=== PATIENT | male | born 1985 | race Caucasian/White ===

== ENCOUNTER 2016-07-25 19:31 | Emergency (ER) | payer SELFPAY ==
--- NOTE | 2016-07-25 19:37 | EDPHY ---
H & P Time Seen by Provider: 07/25/16 19:31 HPI/ROS: CHIEF COMPLAINT: Dizzy and lightheaded HISTORY OF PRESENT ILLNESS: Patient worked all day in a greenhouse. Although he had chicken wings an omelet for breakfast he had a couple of L of coconut water. It was very hot and in fact although it has been in the 90s today outside he said it was hotter in the greenhouse. He had a couple of beers and a little bit of marijuana. Around 6:00 p.m. he started becoming dizzy and lightheaded. Not vertigo or spinning. Associated with difficulty keeping his balance and symptoms are moderate to severe. Arrives via EMS. REVIEW OF SYSTEMS: Eye: no change in vision ENT: no sore throat Cardiac: no chest pain or syncope Pulmonary: no cough or SOB Abdomen: no vomiting, diarrhea, abdominal pain Musculoskeletal: no back pain Skin: no rash Neuro: no headache Constitutional: no fever : no urinary symptoms A comprehensive 10 point review of systems is otherwise negative aside from elements mentioned in the history of present illness. PAST MEDICAL HISTORY: Negative Social history: Alcohol today, 2 beers General Appearance: Alert and conversant, cooperative. Eyes: No scleral icterus. ENT, Mouth: Dry mucous membranes Respiratory: Normal respiratory effort, breath sounds equal, lungs are clear to auscultation. Cardiovascular: Regular rate and rhythm. Gastrointestinal: Abdomen is soft and non tender. Neurological: Alert and oriented x3. Normally conversant. Face symmetric, normal movement and sensation in all extremities. Not ataxic. Skin: Warm and dry, no rashes. Musculoskeletal: No peripheral edema and no joint swelling. Psychiatric: Not agitated. Emergency Department course/MDM: Patient presents with likely dehydration and heat exhaustion. He did not actually have syncope. He clinically is dehydrated. Plan for i-STAT to check electrolytes. 2026: Ambulatory to the bathroom, still feels dizzy and dehydrated. 3rd L IV normal saline, labs and EKG pending. 2104: Feels better, continued improvement, plan for discharge after IV fluids finish. Constitutional: Initial Vital Signs Temperature (C) 36.9 C 07/25/16 19:42 Heart Rate 75 07/25/16 19:42 Respiratory Rate 14 07/25/16 19:42 Blood Pressure 127/75 H 07/25/16 19:42 O2 Sat (%) 96 07/25/16 19:42 O2 Delivery Mode Room Air Allergies/Adverse Reactions: No Known Allergies Allergy (Unverified 07/25/16 19:42) Home Medications: Medication Instructions Recorded NK [No Known Home Meds] 07/25/16 Medical Decision Making - Diagnostics EKG Interpretation: 12-lead EKG interpreted by me; official reading is in trace master. My interpretation is sinus rhythm rate 64 with normal intervals and inferior Q- waves noted probably normal variant. Differential Diagnosis: Differential for weakness and dizziness considered including but not limited to heat exhaustion, dehydration, dysrhythmia, metabolic abnormality. - Data Points Laboratory Results: Laboratory Results 07/25/16 19:38 07/25/16 19:38 07/25/16 07/25/16 07/25/16 19:38 19:38 19:30 WBC 8.28 10^3/uL 10^3/uL (3.80-9.50) RBC 5.10 10^6/uL 10^6/uL (4.40-6.38) Hgb 15.5 g/dL g/dL (13.7-17.5) POC Hgb 15.6 gm/dL gm/dL (13.7-17.5) Hct 44.3 % % (40.0-51.0) POC Hct 46 % % (40-51) MCV 86.9 fL fL (81.5-99.8) MCH 30.4 pg pg (27.9-34.1) MCHC 35.0 g/dL g/dL (32.4-36.7) RDW 13.1 % % (11.5-15.2) Plt Count 223 10^3/uL 10^3/uL (150-400) MPV 10.7 fL fL (8.7-11.7) Neut % (Auto) 60.5 % % (39.3-74.2) Lymph % (Auto) 27.2 % % (15.0-45.0) [place] % (Auto) 10.5 % % (4.5-13.0) Eos % (Auto) 0.8 % % (0.6-7.6) Baso % (Auto) 0.6 % % (0.3-1.7) Nucleat RBC Rel Count 0.0 % % (0.0-0.2) Absolute Neuts (auto) 5.01 10^3/uL 10^3/uL (1.70-6.50) Absolute Lymphs (auto) 2.25 10^3/uL 10^3/uL (1.00-3.00) Absolute Monos (auto) 0.87 10^3/uL H 10^3/uL (0.30-0.80) Absolute Eos (auto) 0.07 10^3/uL 10^3/uL (0.03-0.40) Absolute Basos (auto) 0.05 10^3/uL 10^3/uL (0.02-0.10) Absolute Nucleated RBC 0.00 10^3/uL 10^3/uL (0-0.01) Immature Gran % 0.4 % % (0.0-1.1) Immature Gran # 0.03 10^3/uL 10^3/uL (0.00-0.10) POC Sodium 141 mEq/L mEq/L (134-144) Sodium 137 mEq/L mEq/L (134-144) POC Potassium 3.0 mEq/L L mEq/L (3.3-5.0) Potassium 3.4 mEq/L L mEq/L (3.5-5.2) POC Chloride 102 mEq/L mEq/L (97-110) Chloride 103 mEq/L mEq/L (97-110) Carbon Dioxide 18 mEq/l L mEq/l (22-31) Anion Gap 16 mEq/L mEq/L (8-16) POC BUN 13 mg/dL mg/dL (7-23) BUN 13 mg/dL mg/dL (7-23) Creatinine 1.2 mg/dL mg/dL (0.7-1.3) POC Creatinine 1.3 mg/dL mg/dL (0.7-1.3) Estimated GFR > 60 Glucose 111 mg/dL H mg/dL (70-100) POC Glucose 116 mg/dL H mg/dL (70-100) Calcium 10.0 mg/dL mg/dL (8.5-10.4) Medications Given: Discontinued Medications Sodium Chloride (Ns) 1,000 mls @ 0 mls/hr IV ONCE ONE; Wide Open PRN Reason: Protocol Stop: 07/25/16 19:42 Last Admin: 07/25/16 19:42 Dose: 1,000 mls Sodium Chloride (Ns) 1,000 mls @ 0 mls/hr IV ONCE ONE; Wide Open PRN Reason: Protocol Stop: 07/25/16 19:42 Last Admin: 07/25/16 19:44 Dose: Not Given Sodium Chloride (Ns) 1,000 mls @ 0 mls/hr IV ONCE ONE; Wide Open PRN Reason: Protocol Stop: 07/25/16 20:29 Last Admin: 07/25/16 20:35 Dose: 1,000 mls Point of Care Test Results: 07/25/16 19:30 POC Sodium 141 POC Potassium 3.0 L POC Chloride 102 POC BUN 13 POC Creatinine 1.3 POC Glucose 116 H Departure - Departure Disposition: Home, Routine, Self-Care Clinical Impression: Dehydration Condition: Good Instructions: Dehydration (ED) Referrals: Patient,NotPresent [Unknown] - As per Instructions Nasreen Keller MD [Medical Doctor] - As per Instructions
[2016-07-25] MEDS ORDERED: NS 1,000 ML IV ONE ×3 (19:41→20:28)
[2016-07-25 19:44] VITALS: O2SAT 96
[2016-07-25 20:39] LABS: ANION GAP 16 mEq/L (8-16); CARBON DIOXIDE 18 mEq/l (22-31); CHLORIDE 103 mEq/L (97-110); CREATININE 1.2 mg/dL (0.7-1.3); GLOMERULAR FILTRATION RATE > 60; GLUCOSE 111 mg/dL (70-100); POTASSIUM 3.4 mEq/L (3.5-5.2); SODIUM 137 mEq/L (134-144)
--- NOTE | 2016-07-25 20:43 | CPEKG ---
Heart Rate: 64 RR Interval: 938 P-R Interval: 148 QRSD Interval: 106 QT Interval: 408 QTC Interval: 421 P Forsan: 65 QRS Forsan: 86 T Wave Forsan: 35 EKG Severity - BORDERLINE ECG - EKG Impression: SINUS RHYTHM EKG Impression: INFERIOR Q WAVES, PROBABLY NORMAL VARIATION Electronically Signed By: Terrance Emerson 25-Jul-2016 20:43:49
[2016-07-25 20:45] LABS: % IMMATURE GRANULYOCYTES 0.4 % (0.0-1.1); ABSOLUTE IMMATURE GRANULOCYTES 0.03 10^3/uL (0.00-0.10); ADD DIFF? NO; ADD MORPH? NO; ADD SCAN? NO; ATYPICAL LYMPHOCYTE FLAG 10 (0-99); FRAGMENT RBC FLAG 0 (0-99); HEMATOCRIT 44.3 % (40.0-51.0); HEMOGLOBIN 15.5 g/dL (13.7-17.5); LEFT SHIFT FLG 0 (0-99); LIPEMIA HEMOLYSIS FLAG 90 (0-99); MEAN CELL HEMOGLOBIN 30.4 pg (27.9-34.1); MEAN CELL VOLUME 86.9 fL (81.5-99.8); MEAN PLATELET VOLUME 10.7 fL (8.7-11.7); PLATELET CLUMPS FLAG 0 (0-99); PLATELET COUNT 223 10^3/uL (150-400); RED CELL DISTRIBUTION WIDTH 13.1 % (11.5-15.2)
[2016-07-25 20:50] VITALS: PULSE 64; RESP 16
[2016-07-25 21:33] VITALS: BP 136/75; TEMP 97.2
== END 2016-07-25 21:33 | disposition home or self-care (01) ==
DX: E86.0 Dehydration (principal)
CPT/HCPCS: 82947-QW